=== PATIENT | male | born 1945 | race Caucasian/White ===

== ENCOUNTER 2017-11-22 06:27 | Inpatient (IN) | payer OTHER ==
[2017-11-22] MEDS ORDERED: METOPROLOL TARTRATE 25 MG TAB ONE (21:56)
[2017-11-22] MEDS ORDERED: ATROPINE SULFATE 1 MG/10 ML SYR IVP PRN (23:30)
[2017-11-22] MEDS ORDERED: HYDROCODONE/APAP 5/325 TAB PO PRN (23:32)
[2017-11-22] MEDS ORDERED: LORazepam 2 MG/ML INJ IVP PRN (23:33)
[2017-11-22] MEDS ORDERED: NITROGLYCERIN 0.4 MG BTL SL PRN (23:34)
[2017-11-22] MEDS ORDERED: ONDANSETRON 4 MG/2 ML VIAL IVP PRN (23:36)
[2017-11-22] MEDS ORDERED: TEMAZEPAM 15 MG CAP PO PRN (23:37)
[2017-11-22] MEDS ORDERED: OXYCODONE/APAP 5/325 TAB PO PRN (23:37)
[2017-11-23 04:24] LABS: PLATELET COUNT 206 10^3/uL (150-400)
[2017-11-23] MEDS: ATORVASTATIN CALCIUM 20 MG TAB PO SCH ×2 (05:21→07:59)
[2017-11-23] MEDS: METOPROLOL TARTRATE 25 MG TAB PO SCH ×4 (05:21→20:16)
[2017-11-23] MEDS: CLOPIDOGREL BISULFATE 75 MG TAB PO SCH ×2 (05:21→07:59)
[2017-11-23] MEDS: ASPIRIN EC 81 MG TAB PO SCH ×2 (05:21→07:59)
--- NOTE | 2017-11-23 10:23 | CPEKG ---
Heart Rate: 92 RR Interval: 652 P-R Interval: 148 QRSD Interval: 92 QT Interval: 364 QTC Interval: 451 P [place]: 45 QRS [place]: 32 T Wave [place]: 76 EKG Severity - ABNORMAL ECG - EKG Impression: SINUS RHYTHM EKG Impression: KALIN, CONSIDER BIATRIAL ABNORMALITIES EKG Impression: ANTERIOR INFARCT, POSSIBLY ACUTE Electronically Signed By: eYison Smith 23-Nov-2017 20:27:33
--- NOTE | 2017-11-23 16:01 | PDMN ---
Medical Necessity Medical necessity: original order INPT 11/22/17 @ 15:36 electronically entered due to [employer] downtime 11/23/17 @ 1537. MCG: M40 angina- elevated trop., emergent cath with PCI to Prox. 100% occluded. -
--- NOTE | 2017-11-23 18:38 | GPROG ---
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 He underwent evaluation, and the documentation is sparse in the chart sec ondary to the fact that the electronic health record was down. Basically the patient presented with an EKG at 6:43 in the morning that revealed ST-segment elevation in V1, V2, V3 and V4 with some R-wav e voltage loss and reciprocal cervical changes in 3 and AVF consistent with an acute ST-segment eleva tion infarction. The patient was taken emergently to the cardiac catheterization laboratory and [facility] emergency PTCA and stent placement under the care of Dr. Cruz. The patient had stents to th e LAD. Again, the records are currently not complete, but will be updated shortly. I was asked to s ee the patient for evaluation today as a routine rounds patient. At the time of my evaluation, the patient denies chest pain, pressure, tightness, shortness of breath , leg or arm pain, or other clinical symptoms of concern. He is actually in fairly good spirits cons idering. CURRENT MEDICATIONS: Include aspirin, atorvastatin 20 mg daily, Plavix 75 mg daily, metoprolol tartr ate 25 mg p.o. twice daily, nitroglycerin as needed. An echocardiogram has not yet been performed. PHYSICAL EXAMINATION: VITAL SIGNS: His vital signs reveal a blood pressure in the morning of 106/67 , but highest for the day at the time of this dictation is 144/106. Pulse rate has been regular and in the 70s. Respirations are 16 and unlabored. Oxygen saturation 92% on room air. EYES: Anicteric . His pupils are equal and reactive to light. NECK: Reveals no JVD. His heart reveals normal S1 a nd S2 without S3, S4. LUNGS: Clear to auscultation bilaterally without wheezes, rales or rhonchi. ABDOMEN: Benign with positive bowel sounds. It is nondistended, nontender. GROIN: Reveals no hem atoma and his distal pulses, dorsalis pedis and posterior tibial distribution bilaterally are equal, symmetrical and normal. NEUROLOGICAL: He is alert and oriented x3 and cooperative. He is not anxio us or depressed and seems to be overall in fairly good spirits, again, considering. LABORATORY STUDIES: An elevated troponin measured at 96. His potassium was slightly high at 5.2, gl ucose was 114 on this morning's labs. His H and H are stable at 15.6 and 45.6. Elevated white count of 14.2 with a left shift, which can sometimes be seen with myocardial infarction. PLAN: Our plan is to obtain an echocardiogram in the morning to evaluate his ejection fraction. If that remains below 40, then the patient may require the addition of an SHANTA inhibitor to his medical r egimen. Also, patients with anterior MT who have signs of heart failure or reduced ejection fraction , may benefit from the use of an aldosterone antagonist such as . I think that should be a dded if his blood pressure would tolerate those medications. I would also like to cycle his troponin and obtain a BMP as well as a fasting lipids profile for the patient to help determine if we should increase the dose of his Lipitor. Copy requested to: Primary Care Physician /[id number]/MODL
[2017-11-24 04:29] LABS: PLATELET COUNT 173 10^3/uL (150-400)
[2017-11-24] MEDS: ASPIRIN EC 81 MG TAB PO SCH (08:35)
[2017-11-24] MEDS: ATORVASTATIN CALCIUM 20 MG TAB PO SCH (08:35)
[2017-11-24] MEDS: CLOPIDOGREL BISULFATE 75 MG TAB PO SCH (08:35)
[2017-11-24] MEDS: METOPROLOL TARTRATE 25 MG TAB PO SCH ×2 (08:35→21:08)
--- NOTE | 2017-11-24 10:22 | CPIP ---
[f rep st] INVASIVE CARDIAC PROCEDURE DATE OF PROCEDURE: 11/22/2017 INDICATION FOR PROCEDURE: ST-elevation myocardial infarction. PROCEDURE: 1. Nonselective right groin sheathogram. 2. Bilateral selective coronary angiography. 3. Left heart catheterization. 4. Left ventriculogram. 5. Percutaneous coronary intervention of ostial left anterior descending utilizing Synergy 3.0 x 16 mm drug-eluting stent. HISTORY: Briefly, this is a 72-year-old male who presented to [facility] with chest pain and was found to h ave ST elevations in his anterior leads with elevated troponin. The patient was consented emergently for cardiac catheterization. Of note, the patient's original dictation of this report was performed on 11/22/2017. However, due to a observer electrical prospecting being down the initial report was never transcribed, hence, there may be double versions of the same case. DESCRIPTION OF PROCEDURE: After informed consent was obtained, the patient was brought to the [facility] ca th lab where the patient's right groin was prepped and draped in sterile fashion. Using lidocaine, a short 6-Sami sheath was placed in the right common femoral artery verified angiographically. The patient was administered 600 mg of Plavix p.o. and started on Angiomax bolus and drip. Utilizing a J R4 catheter angiography the right coronary artery showed healthy right coronary artery with only mild plaque disease with RPD and RPLS with a right-dominant system. Of note, there was robust collateral ization to an occluded LAD coming off the RPLS. The JR4 catheter was removed. The EBU 3.5 guide was advanced to the left coronary artery. Angiography was then obtained which showed patent left main. There was a medium size ramus intermedius and a small left circumflex artery. Of note, the LAD was 100% occluded at its ostial takeoff. Choice PT wire was then advanced down the presumed LAD. Predil atation across this ostial area commenced with a 2.5 x 12 mm balloon at 12 atmospheres. After 2 sequ ential inflations the balloon was removed. Angiographic images were obtained which showed restored f low in the LAD with a ruptured plaque in the ostial proximal LAD. Of note, there was a medium to lar ge diagonal artery coming off the area of the ruptured plaque with an ostial 70% pinch. At this time we decided to proceed with stenting of the vessel with a 3.0 x 16 Synergy drug-eluting stent. This was deployed successfully at 14 atmospheres. Post deployment angiographic images were obtained, whic h showed excellent patency of the LAD with no evidence of dissection or perforation. Of note, 70% os tial diagonal pinch was still present, however, there was NONA-3 flow through the vessel. We decided since this artery came off the stented region and the ostial pinch was present prior to intervention that no further intervention was needed on this vessel as any attempt at PTCA the ostium of the diag onal artery would have to go through a stented region in the LAD and potentially could result in diss ecting the diagonal or shifting plaque back into the LAD. This was verified in orthogonal views. Th e guide catheter was removed over 0.035 wire. A pigtail catheter advanced to the left ventricle. LV EDP is 10 mmHg. Left ventriculogram obtained in the RODRIGUEZ projection showed EF of 55%, with no wall mo tion abnormalities. LVEDP was 15 mmHg. There was no pull-back gradient between the LV and the aorta . Pigtail catheter removed over 0.035 wire. The right groin was closed with 6-Sami Angio-Seal. T he patient tolerated the procedure well. No complications. IMPRESSION: 1. ST-elevation myocardial infarction revascularization of 100% occluded ostial left anterior descen ding with Synergy 3.0 x 16 mm drug-eluting stent. 2. 70% pinch of ostial medium to large diagonal artery coming off the stented region with NONA-3 dayanara w. 3. Mild plaque disease in left circumflex artery and right coronary artery. 4. Normal ejection fraction. PLAN: The patient will be admitted to ICU. Further orders following clinical course. The patient w ill remain on aspirin and Plavix for at least 1 year as well as be instituted on statin and beta-bloc ker therapy. /[id number]/MODL
[2017-11-24] MEDS ORDERED: PERFLUTREN LIPID MICROSPHERES 1.1 MG/ML VIAL IV ONE (12:25)
--- NOTE | 2017-11-24 13:51 | ASMTCASEMG ---
Living Arrangements What is your living Answers: Alone arrangement? Who do you live with? Type Of Residence What kind of residence do Answers: House you live in? Discharge Plan Comments Coordination Status Comments Notes: Pt is a 72 y/o man admitted for a cardiac alert and stemi. Pt will most likely d/c without any needs. No therapies ordered at this time. CM available for changes. Plan: Independent Date Signed: 11/24/2017 01:51 PM Electronically Signed By:KELSI Negrete
--- NOTE | 2017-11-24 15:54 | ECHO ---
[email or web address] [address] [address] Main: [phone] Fax: Transthoracic Echocardiogram Name: ALF MCKEON MR#: [id number] Study Date: 11/24/2017 Study Time: 12:59 PM Date of : 1945 Age: 72 year(s) Height: 177.8 cm (70 in.) Weight: 108.86 kg (240 lb.) BSA: 2.26 m2 Gender: Male Examination: Limited Echo with Definity Indication: Eval LV Fx, Definity Image Quality: Contrast: Requested by: Mason Mcguire BP: 95 mmHg/56 mmHg Heart Rate: Rhythm: Normal sinus rhythm Indication: Eval LV Fx, Definity Procedure Staff Mash Preparatory Operator: Salinas Gonzalez RDCS Reading Physician: Jory Houston MD Requesting Provider: Conclusions: .33 mg of Definity imaging enhancement was utilitzed. There is basilar to mid anteroseptal hypokinesis. There is apical hypokinesis. Simpsons EF measurements in 4C and 2C estimate the LV EF at 40-45% There is no evidence of LV Apical thrombus.. Compared with prior study 11/22 LV function improved Measurements: Chambers Valvular Assessment AV/MV Valvular Assessment TV/PV Normal Normal Normal Name Value Range Name Value Range Name Value Range IVSd (2D): 1.3 cm (0.6 cm-1.1 cm) LVDd (2D): 4.6 cm (4.2 cm-5.9 cm) LVDs (2D): 3.7 cm (2.1 cm-4 cm) LVPWd (2D): 1.3 cm (0.6 cm-1 cm) LVEF (BP): 43 % (>=55 %) Continued Measurements: Findings: Exam Comments: .33 mg of Definity imaging enhancement was utilitzed. There is basilar to mid anteroseptal hypokinesis. There is apical hypokinesis. Simpsons EF measurements in 4C and 2C estimate the LV EF at 40-45% There is no evidence of LV Apical thrombus.. Patient: ALF MCKEON Study Date: 11/24/2017 Page 1 of 2 12:59 PM (No Signature Object) Patient: ALF MCKEON Study Date: 11/24/2017 Page 2 of 2 12:59 PM [id number]
--- NOTE | 2017-11-24 17:07 | PDCARPN ---
Cardiology Progress Note Assessment/Plan: Assessment: Jeovany is a 72-year-old male who presented to the ED with chest discomfort. His EKG showed St-segment elevation in V1, V2, V3 and V4 with some R-wave voltage loss and reciprocal cervical changes in 3 and AVF consistent with an acute ST-segment elevation infarction. The patient underwent cardiac catheterization and had emergent PTCA and stent placement under the care of Dr. Cruz. The patient had stents placed to the LAD. I re-evaluated the patient today. He denies chest pain, pressure, tightness, shortness of breath, leg or arm pain, or other clinical symptoms of concern. The patient is doing well and is in good spirits. Plan: We repeated the patient's limited echocardiogram this morning. HIs EF has improved to 45%. I reviewed his lab work. His Troponin is trending down, previously 96, today it was 42. His BNP is elevated at 2020. His lipid panel is within normal range. His vitals are stable, last blood pressure was 101/66. We started the patient on Lisinopril 2.5 mg as well as Inspra 25 mg. We will continue to monitor the patient overnight for dysrhythmia and plan to discharge in the morning. 11/24/17 17:04 Subjective: The patient is feeling well and resting comfortably. He has no cardiac complaints at this time. His chest pain has resolved. Reviewed/Discussed With: multidisciplinary team Objective: Vital Signs (8 Hrs) Temp Pulse Resp BP Pulse Ox 11/24/17 15:04 37.6 C 75 14 101/66 90 L 11/24/17 11:14 36.9 C 71 14 95/56 L 94 11/24/17 10:08 94 Intake/Output (24 Hrs) 11/23/17 11/24/17 11/25/17 05:59 05:59 05:59 Intake Total 520 1680 Output Total 450 675 Balance 70 1005 Intake: Oral (ml) 500 1680 IV Infused (ml) 20 Output: Urine (ml) 450 675 Urinal 450 675 Other: Weight 109 kg Intake Quantity Yes Yes Sufficient Number of Voids Urinal 2 Number of Stools Urinal 0 0 Result Diagrams: 11/24/17 03:51 11/23/17 04:00 Cardiac Labs: Cardiac Lab Results (72 Hrs) 11/24/17 11/23/17 03:51 04:00 Troponin I 42.700 H 96.000 H EKG: We have ordered a 12 lead EKG and will review and interpret it tomorrow prior to discharging the patient home. Telemetry: I have reviewed the raw data from the rhythm strips. He is in normal sinus rhythm. There was no tachy or darin dysrhythmia present on the monitoring. Echocardiogram: We repeated his limited echocardiogram which showed EF improvement, now 42%. - Physical Exam Constitutional: WDWN, healthy appearing Eyes: PERRL, EOMI Ears, Nose, Mouth, Throat: moist mucous membranes Cardiovascular: regular rate and rhythm, no murmurs, no rubs, no gallops Peripheral Pulses: 2+: carotid (R), carotid (L), femoral (R), femoral (L), dorsalis-pedis (R), dorsalis-pedis (L) Respiratory: clear to auscultate bilat, no crackles, no wheezes Gastrointestinal: normoactive bowel sounds Skin: no rashes, warm Musculoskeletal: no muscular tenderness Neurologic: AAOx3 Psychiatric: cooperative, interactive - . Pending Discharge Within 24 Hours: Yes ICD10 Worksheet Patient Problems: Problems Problem Status Onset Anterior myocardial infarction Acute Coronary artery disease Acute - ICD10 Problem Qualifiers (1) Anterior myocardial infarction (2) Coronary artery disease
[2017-11-24] MEDS: EPLERENONE 25 MG TAB PO SCH (18:39)
[2017-11-25] MEDS: ASPIRIN EC 81 MG TAB PO SCH (08:51)
[2017-11-25] MEDS: CLOPIDOGREL BISULFATE 75 MG TAB PO SCH (08:52)
[2017-11-25] MEDS: METOPROLOL TARTRATE 25 MG TAB PO SCH (08:52)
[2017-11-25] MEDS: EPLERENONE 25 MG TAB PO SCH (08:52)
[2017-11-25] MEDS: ATORVASTATIN CALCIUM 20 MG TAB PO SCH (08:52)
[2017-11-25] MEDS ORDERED: LISINOPRIL 2.5 MG TAB PO SCH (09:00)
[2017-11-25 11:41] VITALS: BP 97/65
--- NOTE | 2017-11-25 13:12 | PDCARPN ---
Cardiology Progress Note Chief Complaint: Anterior myocardial infarction. Assessment/Plan: Assessment: Jeovany is a 72-year-old male who presented to the ED with chest discomfort. His EKG showed St-segment elevation in V1, V2, V3 and V4 with some R-wave voltage loss and reciprocal cervical changes in 3 and AVF consistent with an acute ST-segment elevation infarction. The patient underwent cardiac catheterization and had emergent PTCA and stent placement under the care of Dr. Cruz. The patient had stents placed to the LAD. I re-evaluated the patient today. He denies chest pain, pressure, tightness, shortness of breath, leg or arm pain, or other clinical symptoms of concern. The patient is doing well and is in good spirits. Plan: We repeated the patient's limited echocardiogram this morning. HIs EF has improved to 45%. I reviewed his lab work. His Troponin is trending down, previously 96, today it was 42. His BNP is elevated at 2020. His lipid panel is within normal range. His vitals are stable, last blood pressure was 101/66. We started the patient on Lisinopril 2.5 mg as well as Inspra 25 mg. We will continue to monitor the patient overnight for dysrhythmia and plan to discharge in the morning. 11/24/17 17:04 11/25/17 13:08 I re-assessed the patient today. He is doing well and has no cardiac complaints at this time. Dr. Cruz started the patient on Metoprolol tartrate post stent implantation. We switched this to Coreg 3.125 twice daily because his blood pressure has been a bit soft. I also switched him from atorvastatin to rosuvastatin because his HDL cholesterol was on the low side at 46mg/dL and Atorvastatin is known to lower HDL at higher doses. We added Lisinopril 2.5mg and Inspra 25 mg to his medical regimen yesterday. His blood pressure today is 97/65 and well controlled. I would like him to remain on these medications for the next 6 months to reduce blood pressure as well as negative remodeling. I would like to repeat the patient's echocardiogram in 3 months to evaluate permanent injury and his ejection fraction. If his ejection fraction drifts below 35%, he may be a candidate for an AICD per the MADIT II criteria. The patient will require dual antiplatelet therapy of ASA and Plavix for a minimum of 1 year post stent implantation. I have advised the patient to avoid situations that may cause increased stress. He is not to do activity that is likely to increase his heart rate or blood pressure for at least the next 2 weeks. The patient knows to present to the Emergency Department immediately if he develops chest pain, pressure, tightness, shortness of breath, palpitations, rapid or skipped beats, lightheadedness, near syncope, or syncope. 11/25/17 15:58 Subjective: The patient is doing well. He has no cardiac complaints at this time. The patient would like to be discharged home today. Reviewed/Discussed With: family, hospitalist, multidisciplinary team Time Spent with Patient: greater than 25 minutes Time Spent with Patient: Greater than 25 minutes spent on this patients care, greater than 50% of time spent counseling, educating, and coordinating care regarding the above mentioned plan. Objective: Vital Signs (8 Hrs) Temp Pulse Resp BP Pulse Ox 11/25/17 11:40 36.8 C 65 18 97/65 L 93 11/25/17 08:33 91 L 11/25/17 07:52 36.8 C 68 18 103/69 95 Intake/Output (24 Hrs) 11/24/17 11/25/17 11/26/17 05:59 05:59 05:59 Intake Total 1680 300 Output Total 675 Balance 1005 300 Intake: Oral (ml) 1680 300 Output: Urine (ml) 675 Urinal 675 Other: Intake Quantity Yes Yes Sufficient Number of Voids Toilet 1 Urinal 4 Number of Stools Urinal 0 3 Result Diagrams: 11/24/17 03:51 11/23/17 04:00 Cardiac Labs: Cardiac Lab Results (72 Hrs) 11/24/17 11/23/17 03:51 04:00 Troponin I 42.700 H 96.000 H EKG: sinus rhythm recent anterior injury pattern Telemetry: I looked at the raw data from the patient's rhythm strips. There is no tachy or darin dysrhythmia present on the monitoring system. Echocardiogram: Previously reviewed. Please see formal report for details. - Physical Exam Constitutional: WDWN, healthy appearing Eyes: PERRL, EOMI Ears, Nose, Mouth, Throat: moist mucous membranes Cardiovascular: regular rate and rhythm Peripheral Pulses: 2+: carotid (R), carotid (L), femoral (R), femoral (L), dorsalis-pedis (R), dorsalis-pedis (L) Gastrointestinal: normoactive bowel sounds Skin: no rashes, warm Musculoskeletal: no muscular tenderness Neurologic: AAOx3 Psychiatric: cooperative, interactive - . Pending Discharge Within 24 Hours: Yes ICD10 Worksheet Patient Problems: Problems Problem Status Onset Anterior myocardial infarction Acute Coronary artery disease Acute Dyslipidemia (high LDL; low HDL) Acute - ICD10 Problem Qualifiers (1) Anterior myocardial infarction (2) Coronary artery disease (3) Dyslipidemia (high LDL; low HDL)
[2017-11-25] MEDS ORDERED: CARVEDILOL 3.125 MG TAB PO SCH (18:00)
[2017-11-26] MEDS ORDERED: ROSUVASTATIN CALCIUM 20 MG TAB PO SCH (09:00)
== END 2017-11-25 16:23 | disposition home or self-care (01) | DRG 247 ==
LOC: F2N 07:28 → F2W 11-23 17:11
PROVIDERS: ADMIT Internal Medicine Cardiovascular Disease; ATTEND Internal Medicine Cardiovascular Disease
PROC: 027034Z Dilation of Coronary Artery, One Artery with Drug-eluting Intraluminal Device, Percutaneous Approach (ICD-10-PCS; principal; 2017-11-22)
PROC: 4A023N7 Measurement of Cardiac Sampling and Pressure, Left Heart, Percutaneous Approach (ICD-10-PCS; principal; 2017-11-22)
PROC: B2111ZZ Fluoroscopy of Multiple Coronary Arteries using Low Osmolar Contrast (ICD-10-PCS; principal; 2017-11-22)
PROC: B2151ZZ Fluoroscopy of Left Heart using Low Osmolar Contrast (ICD-10-PCS; principal; 2017-11-22)
DX: I21.02 ST elevation (STEMI) myocardial infarction involving left anterior descending coronary artery (principal); I25.10 Atherosclerotic heart disease of native coronary artery without angina pectoris; E78.5 Hyperlipidemia, unspecified
CPT/HCPCS: 84484-PO; C1725; C1760; C1769; C1874; C1887; C8924; C9606; Q9957